=== PATIENT | male | born 1965 | race Caucasian/White ===

== ENCOUNTER 2019-05-26 06:48 | Day surgery (SDC) | payer OTHER ==
[~2019-05-26] VITALS: Ht 170.2 cm; Wt 83.5 kg
[2019-05-26 07:37] VITALS: BP 133/87
[2019-05-26 12:07] VITALS: BP 105/69
== END 2019-05-26 11:20 | disposition home or self-care (01) ==
LOC: DS 06:48 → GI 09:30 → EDSEX 09:30 → OR 09:30 → DS 11:20
DX: I85.11 Secondary esophageal varices with bleeding (principal); K76.6 Portal hypertension; K31.89 Other diseases of stomach and duodenum; K74.69 Other cirrhosis of liver; E11.9 Type 2 diabetes mellitus without complications; Z79.84 Long term (current) use of oral hypoglycemic drugs; Z79.899 Other long term (current) drug therapy; Z98.890 Other specified postprocedural states; Z87.11 Personal history of peptic ulcer disease
CPT/HCPCS: 43235; J1200; J1610; J2250; J2310; J3010; J3490